=== PATIENT | female | born 1975 | race Hispanic/Latino ===

== ENCOUNTER → 2019-04-13 | Outpatient (CLI) | payer BC | END | disposition home or self-care (01) | LOC: RAH 14:22 | PROVIDERS: ATTEND Obstetrics & Gynecology | DX: Z12.31 Encounter for screening mammogram for malignant neoplasm of breast (principal) | CPT/HCPCS: 77067 ==

== ENCOUNTER → 2020-06-16 | Outpatient (CLI) | payer BC | END | disposition home or self-care (01) | LOC: RAH 13:23 | PROVIDERS: ATTEND Obstetrics & Gynecology | DX: Z12.31 Encounter for screening mammogram for malignant neoplasm of breast (principal) | CPT/HCPCS: 77067 ==

== ENCOUNTER → 2021-10-05 | Outpatient (CLI) | payer BC | END | disposition home or self-care (01) | LOC: RAH 14:30 | PROVIDERS: ATTEND Obstetrics & Gynecology | DX: Z12.31 Encounter for screening mammogram for malignant neoplasm of breast (principal) | CPT/HCPCS: 77067 ==

== ENCOUNTER → 2022-08-16 | Outpatient (CLI) | payer OTHER ==
[~2022-08-16] VITALS: Ht 15.2 cm; Wt 97.6 kg
== END | disposition home or self-care (01) ==
LOC: DTH 10:28
PROVIDERS: ATTEND Surgery
DX: Z71.3 Dietary counseling and surveillance (principal); E78.00 Pure hypercholesterolemia, unspecified; K76.0 Fatty (change of) liver, not elsewhere classified; G47.33 Obstructive sleep apnea (adult) (pediatric); M19.91 Primary osteoarthritis, unspecified site; E66.09 Other obesity due to excess calories; Z68.34 Body mass index [BMI] 34.0-34.9, adult
CPT/HCPCS: 97802

== ENCOUNTER → 2022-10-05 | Outpatient (CLI) | payer BC | END | disposition home or self-care (01) | LOC: RAH 15:33 | PROVIDERS: ATTEND Obstetrics & Gynecology | DX: Z12.31 Encounter for screening mammogram for malignant neoplasm of breast (principal) | CPT/HCPCS: 77067 ==

== ENCOUNTER 2023-06-14 08:18 | Day surgery (SDC) | payer BC ==
[2023-06-10 15:39] LABS: BASOPHILS # (AUTO) 0.03 K/uL (0.00-0.20); BASOPHILS % (AUTO) 0.4 % (0.0-5.0); EOSINOPHILS # (AUTO) 0.16 K/uL (0.00-0.70); EOSINOPHILS % (AUTO) 2.4 % (0.0-8.0); HEMATOCRIT 37.6 % (36-48); IMMATURE GRANULOCYTE ABSOLUTE 0.02 K/uL (0-1); LYMPHOCYTES # (AUTO) 2.4 K/uL (1.0-4.8); LYMPHOCYTES % (AUTO) 35.6 % (21.0-51.0); MEAN CORPUSCULAR HEMOGLOBIN 34.8 pg (27.0-33.0); MEAN CORPUSCULAR HGB CONC 35.4 g/dL (32.0-36.0); MEAN CORPUSCULAR VOLUME 98.4 fL (79-99); MONOCYTES # (AUTO) 0.7 K/uL (0.1-1.0); MONOCYTES % (AUTO) 9.9 % (3.0-13.0); NEUTROPHILS # (AUTO) 3.5 K/uL (1.8-7.7); NEUTROPHILS % (AUTO) 51.4 % (40.0-77.0); PLATELET COUNT (AUTO) 263 K/uL (130-400); RED BLOOD CELL COUNT(AUTO) 3.82 MIL/uL (4.00-5.50); WHITE BLOOD COUNT (AUTO) 6.8 K/uL (4.8-10.8)
[2023-06-10 15:51] VITALS: BP 134/67; PULSE 60; RESP 18
[2023-06-10 15:52] LABS: INR 0.95 (0.85-1.15); PROTHROMBIN TIME 11.1 SEC (9.6-11.6)
[2023-06-10 15:53] LABS: CREATININE 0.6 mg/dL (0.5-1.5); PARTIAL THROMBOPLASTIN TIME 27.3 SEC (26.3-35.5); POTASSIUM 3.8 mmol/L (3.5-5.1)
[2023-06-14] VITALS (17 sets, daily range): BP systolic 117–140; BP diastolic 65–79; PULSE 59–78; RESP 10–18
[~2023-06-14] VITALS: Ht 167.6 cm; Wt 96.4 kg
[~2023-06-14 08:18] MED LIST: CETI10TA57 PO; MAGNESIUM PO; MILK THISTLE PO; VENL37.570 PO; VITAMIN D3 PO
[2023-06-14] MEDS ORDERED: LACTATED RINGERS 1000ML 1,000 ML IV ONE (09:20)
[2023-06-14] MEDS ORDERED: CEFAZOLIN SODIUM 2 GM VIAL ONE (09:20)
[2023-06-14] MEDS ORDERED: BUPIVACAINE/PF 0.5% 30ML VIAL ONE (09:26)
[2023-06-14] MEDS ORDERED: MIDAZOLAM HCL 1 MG/ML 2ML VIAL ONE (09:44)
[2023-06-14] MEDS ORDERED: PROPOFOL 10 MG/ML 20ML VIAL IV ONE (09:44)
[2023-06-14] MEDS ORDERED: ROCURONIUM 10MG/1ML SYR 10 MG/ML ML ONE (09:44)
[2023-06-14] MEDS ORDERED: FENTANYL CITRATE PF 50 MCG/1 ML 2ML VIAL ONE ×2 (09:45→10:40)
[2023-06-14] MEDS ORDERED: ONDANSETRON 4MG INJ ONE (09:46)
[2023-06-14] MEDS ORDERED: IOHEXOL-350 50ML VIAL IV ONE (09:53)
[2023-06-14] MEDS ORDERED: NEOSTIGMINE 5MG/5ML SYR IV ONE (10:33)
[2023-06-14] MEDS ORDERED: GLYCOPYRROLATE 1 MG/5 ML SYRINGE ONE (10:33)
[2023-06-14] MEDS ORDERED: KETOROLAC 30MG VIAL (30MG/ML) ONE (10:43)
[2023-06-14] MEDS ORDERED: DOCU-116 PO (10:51)
[2023-06-14] MEDS ORDERED: GABA-529 PO (10:51)
[2023-06-14] MEDS ORDERED: METH-662 PO (10:51)
[2023-06-14] MEDS ORDERED: MEPERIDINE-PF 25 MG/ML SYG ONE ×2 (11:08→11:19)
== END 2023-06-14 12:30 | disposition home or self-care (01) ==
LOC: DAH 08:18
PROVIDERS: ATTEND Surgery
DX: K81.1 Chronic cholecystitis (principal); F41.9 Anxiety disorder, unspecified; Z79.01 Long term (current) use of anticoagulants; Z79.899 Other long term (current) drug therapy; Z90.710 Acquired absence of both cervix and uterus; Z98.51 Tubal ligation status; Z98.890 Other specified postprocedural states; Z83.3 Family history of diabetes mellitus; Z82.49 Family history of ischemic heart disease and other diseases of the circulatory system
CPT/HCPCS: 80048; 85025; 85610; 85730; 36415; 47563; 88304; 74300; A6260; A4663; J7030; J7120 ×2; C1758; J3010 ×2; J3490 ×2; J2710; J2250; J2704; J2405; J1885; J2175 ×2; Q9967; J0690; A4649 ×2; A4930 ×2; A5120; A4215; A4223; A4222; A4221; A4600

== ENCOUNTER → 2023-10-07 | Outpatient (CLI) | payer BC ==
[~2023-10-07] MED LIST changes: +DOCU-116 PO; +GABA-529 PO; +METH-662 PO; +VENL37.57 PO; -VENL37.570 PO
== END | disposition home or self-care (01) ==
LOC: RAH 12:56
PROVIDERS: ATTEND Obstetrics & Gynecology
DX: Z12.31 Encounter for screening mammogram for malignant neoplasm of breast (principal); R92.323 Mammographic fibroglandular density, bilateral breasts
CPT/HCPCS: 77067

== ENCOUNTER → 2024-10-08 | Outpatient (CLI) | payer BC ==
--- NOTE | 2024-10-08 10:00 | HMCIMG ---
MAMMO SCREENING BILATERAL HISTORY: Screening mammogram. COMPARISON: 10/07/2023 TECHNIQUE: Bilateral screening mammogram with CAD was performed with craniocaudal and mediolateral oblique projections. FINDINGS: There are scattered areas of fibroglandular density. There is no evidence of a dominant mass, or suspicious microcalcification. There is no evidence of nipple retraction or skin thickening. IMPRESSION: 1. Stable mammogram. Patient was entered into a reminder system with a target due date for their next mammogram. BI-RADS: CATEGORY 2: BENIGN FINDINGS Recommend monthly self breast exam as well as annual clinical examination. A negative x-ray should not delay biopsy if a dominant or clinically suspicious mass is present, since 8-10% of cancers are not identified by mammography. Dense breasts particularly, may obscure an underlying neoplasm. Some of these may be detected clinically and therefore, clinical examination is an essential part of breast evaluation.
== END | disposition home or self-care (01) ==
LOC: RAH 09:26
PROVIDERS: ATTEND Obstetrics & Gynecology
DX: Z12.31 Encounter for screening mammogram for malignant neoplasm of breast (principal); R92.323 Mammographic fibroglandular density, bilateral breasts
CPT/HCPCS: 77067